=== PATIENT | male | born 1940 | race Caucasian/White ===

== ENCOUNTER 2017-01-28 19:07 | Inpatient (IN) | payer MEDICARE, MEDICAID ==
[2017-01-28 19:07] VITALS: BMI 23.2
[2017-01-28] MEDS ORDERED: Sodium Chloride 0.9% 1,000 ML IV ONE (19:39)
[2017-01-28] MEDS ORDERED: Sodium Chloride 0.9% 1,000 ML ONE (19:49)
[2017-01-28 19:54] LABS: BASO % 0.3 % (0.0-2.0); EOS # 0.2 K/uL (0.0-0.7); HEMATOCRIT 37.1 % (35.0-51.0); LYMPH # 1.7 K/uL (1.0-4.3); LYMPH % 17.2 % (20.0-40.0); MEAN CELL VOLUME 88.9 fL (80.0-94.0); MEAN CORPUSCULAR HGB CONC 33.8 g/dL (33.0-37.0); MEAN PLATELET VOLUME 9.3 fL (7.2-11.7); MONO % 10.4 % (0.0-10.0); RED CELL DISTRIBUTION WIDTH 13.9 % (11.5-14.5); WHITE BLOOD COUNT 10.1 K/uL (4.8-10.8)
[2017-01-28 20:04] LABS: CHLORIDE 104 mmol/L (98-107); POTASSIUM 3.9 mmol/L (3.6-5.2); SODIUM 140 mmol/L (132-148)
[2017-01-28 20:06] LABS: BILIRUBIN,TOTAL 0.9 mg/dL (0.2-1.3); GFR AFRICAN-AMERICAN > 60
[2017-01-28 20:07] LABS: ALB/GLOB RATIO 1.6 (1.0-2.1); ALKALINE PHOSPHATASE 37 U/L (38-126); ALT/SGPT 35 U/L (21-72); AST/SGOT 24 U/L (17-59); BLOOD UREA NITROGEN 24 mg/dL (9-20); CARBON DIOXIDE 24 mmol/L (22-30); GLUCOSE,RANDOM 125 mg/dL (75-110)
--- NOTE | 2017-01-28 20:16 | C.PDOC ---
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 Denies fever, chills, nausea, or vomiting. Chief Complaint (Nursing): Medical Clearance History Per: Patient History/Exam Limitations: no limitations Onset/Duration Of Symptoms: Mins Current Symptoms Are (Timing): Still Present Recent travel outside of the [place]: No Past Medical History Reviewed: Historical Data, Nursing Documentation, Vital Signs Vital Signs: Last Vital Signs Temp 97.7 F 01/28/17 23:01 Pulse 78 01/28/17 23:01 Resp 14 01/28/17 23:01 BP 148/72 01/28/17 23:01 Pulse Ox 97 01/28/17 23:48 - Medical History PMH: Asthma, Emphysema, Gall Bladder Disease (GALLSTONES CHOLECYSTECTOMY), HTN, Hypothyroidism Surgical History: Cholecystectomy, Endoscopy - [facility] Procedures CORONAR ARTERIOGR-2 CATH (02/18/14) LEFT HEART CARDIAC CATH (02/18/14) LT HEART ANGIOCARDIOGRAM (02/18/14) Family History: States: Unknown Family Hx - Social History Hx Alcohol Use: No Hx Substance Use: No - Immunization History Hx Tetanus Toxoid Vaccination: No Hx Influenza Vaccination: Yes Hx Pneumococcal Vaccination: No Review Of Systems Constitutional: Negative for: Fever, Chills ENT: Positive for: Other (Unable to swallow) Gastrointestinal: Negative for: Nausea, Vomiting Physical Exam - Physical Exam Appears: Non-toxic, No Acute Distress Skin: Normal Color, Warm, Dry Head: Atraumatic, Normacephalic Oral Mucosa: Moist Chest: Symmetrical, No Tenderness Cardiovascular: Rhythm Regular, No Murmur Respiratory: Normal Breath Sounds, No Rales, No Rhonchi, No Wheezing Gastrointestinal/Abdominal: Soft, Tenderness (Epigastric), No Guarding, No Rebound Back: No CVA Tenderness Neurological/Psych: Oriented x3, Normal Speech, Normal Cognition ED Course And Treatment - Laboratory Results Result Diagrams: 01/28/17 19:51 01/28/17 19:51 ECG: Interpreted By Me ECG Rhythm: AV Paced, PVC ECG Interpretation: Abnormal Interpretation Of ECG: AV paced rhythm with PVC, hunter acute change Rate From EC O2 Sat by Pulse Oximetry: 97 (Room air ) Pulse Ox Interpretation: Normal Progress Note: CT abd/pel, EKG, and CXR ordered. Pepcid, ativan, and IV fluids administered. Office of Dr. Jeri Haines called for consult; waiting for call back. Disposition Discussed With Dr.: Rm Kowalski Jr. Doctor Will See Patient In The: Hospital Counseled Patient/Family Regarding: Diagnosis - Disposition Disposition: HOSPITALIZED Disposition Time: 21:33 Condition: STABLE - Clinical Impression Clinical Impression: Esophageal obstruction - Scribe Statement The provider has reviewed the documentation as recorded by the Scriblily Manuel All medical record entries made by the Carlitoiblily were at my direction and personally dictated by me. I have reviewed the chart and agree that the record accurately reflects my personal performance of the history, physical exam, medical decision making, and the department course for this patient. I have also personally directed, reviewed, and agree with the discharge instructions and disposition.
--- NOTE | 2017-01-28 21:16 | CT ---
EXAM: CT Chest Without Intravenous Contrast CLINICAL HISTORY: 76 years old, male; Pain; Abdominal pain; Epigastric; Other: Lower chest/back pain; Patient HX: Dysphagia TECHNIQUE: Axial computed tomography images of the chest without intravenous contrast. All CT scans at this facility use one or more dose reduction techniques, viz.: automated exposure control; ma/kV adjustment per patient size (including targeted exams where dose is matched to indication; i.e. head); or iterative reconstruction technique. Coronal and sagittal reformatted images were created and reviewed. COMPARISON: No relevant prior studies available. FINDINGS: Limitations: Lack of intravenous contrast. Lungs: Moderate centrilobular emphysematous changes. Mild peripheral atelectasis/scarring. Apical scarring. No consolidation. Few subpleural pulmonary nodules and/or scarring up to 0.7 cm. Pleural space: No pneumothorax. No significant effusion. Heart: No cardiomegaly. No significant pericardial effusion. Coronary artery calcifications. Mediastinum: Mild air/fluid distention of proximal to mid esophagus. Collapse or narrowing of distal esophagus. Intraluminal filling defect within mid esophagus. Bones/joints: Median sternotomy. Mild degenerative changes of spine. No acute fracture. Soft tissues: Unremarkable. Vasculature: [id number] atherosclerotic disease. No aneurysm. Lymph nodes: No pathologically enlarged lymph nodes. Tubes, lines and devices: LEFT pacemaker. IMPRESSION: 1. Mild distention of proximal to mid esophagus with collapse or narrowing of distal esophagus. Intraluminal lesion vs debris within mid esophagus. Recommend endoscopy. 2. Pulmonary nodules. For low-risk patients recommend follow-up chest CT at 3-6 months. If unchanged consider an additional follow-up CT at 18-24 months. For high-risk patients (smoking history or other known risk factors) initial follow-up chest CT at 3-6 months and if unchanged, 18-24 months. 3. Incidental/non-acute findings are described above. EXAM: CT Abdomen and Pelvis Without Intravenous Contrast CLINICAL HISTORY: 76 years old, male; Pain; Abdominal pain; Epigastric; Other: Lower chest/back pain; Patient HX: Dysphagia TECHNIQUE: Axial computed tomography images of the abdomen and pelvis without intravenous contrast. All CT scans at this facility use one or more dose reduction techniques, viz.: automated exposure control; ma/kV adjustment per patient size (including targeted exams where dose is matched to indication; i.e. head); or iterative reconstruction technique. Coronal and sagittal reformatted images were created and reviewed. COMPARISON: No relevant prior studies available. FINDINGS: Limitations: Lack of intravenous contrast. ABDOMEN: Liver: Fatty infiltration. Apparent 1.2 x 1.1 x 1.2 cm relatively hyperdense lesion within RIGHT lobe. Gallbladder and bile ducts: Cholecystectomy. No ductal dilation. Pancreas: Unremarkable. No ductal dilation. Spleen: No splenomegaly. Adrenals: No mass. Kidneys and ureters: Few too small to characterize lesions within kidneys. Few small renal calculi. No hydronephrosis. Stomach and bowel: No definite mural thickening. No obstruction. Appendix: No findings to suggest acute appendicitis. PELVIS: Bladder: Unremarkable. No stones. Reproductive: Unremarkable as visualized. ABDOMEN and PELVIS: Intraperitoneal space: No significant fluid collection. No free air. Bones/joints: Mild degenerative changes of spine. No acute fracture. Soft tissues: Unremarkable. Vasculature: [id number] atherosclerotic disease. No aneurysm. Lymph nodes: No pathologically enlarged lymph nodes. IMPRESSION: 1. Possible liver lesion. Recommend nonemergent MRI. 2. Nonobstructing renal calculi. 3. Incidental/non-acute findings are described above.
--- NOTE | 2017-01-28 22:17 | CP.PCM.HP ---
History of Present Illness - History of Present Illness History of Present Illness: CC: I was eating a piece of meat and it feels like it is stuck in my esophagus. HPI: Patient is a 76 year old male with PMHx of AICD placed in 09/2016, DM, HTN, HLD, hypothyroid, asthma, emphysema who presents today because he was eating dinner and felt like a piece of meat got stuck in his throat. Patient says none of the food he was eating was hard and there were no bones in the food. Patient was unable to swallow and tried taking sips of water which he regurgitated (10x) . Patient says he has pain in his epigastrium that he rates as a 7/10. He also has some mid back pain. Patient denies chest pain, shortness of breath, nausea, constipation, or diarrhea. PMD: Dr. Kowalski PMHx: AICD placed in 09/2016, DM, HTN, HLD, hypothyroid, asthma, emphysema Psurg: Cholecystectomy, Cath/angio in 2013, AICD in 2016, neck operation for an infection? in 2007 Famhx: Brother: [place] at 56 Father: [place] at 65 Social: quit smoking cigarettes 15 years ago, drinks about once every 1-2months , denies drugs Present on Admission - Present on Admission Any Indicators Present on Admission: No History of DVT/PE: No History of Uncontrolled Diabetes: No Urinary Catheter: No Decubitus Ulcer Present: No Review of Systems - Constitutional Constitutional: absent: Chills, Fever - EENT Eyes: absent: Blurred Vision Ears: absent: Decreased Hearing Nose/Mouth/Throat: Dysphagia, Odynophagia - Cardiovascular Cardiovascular: absent: Chest Pain, Claudication, Dyspnea on Exertion, Edema - Respiratory Respiratory: absent: Dyspnea, Wheezing, Stridor - Gastrointestinal Gastrointestinal: Dysphagia, Odynophagia. absent: Constipation, Diarrhea - Musculoskeletal Musculoskeletal: absent: Joint Swelling, Muscle Weakness, Stiffness - Neurological Neurological: absent: Dizziness - Psychiatric Psychiatric: absent: Confusion - Endocrine Endocrine: absent: Change in Body Appearance, Fatigue Past Patient History - Infectious Disease Hx of Infectious Diseases: None - Past Medical History & Family History Past Medical History?: Yes - Past Social History Smoking Status: Former Smoker - CARDIAC Hx Hypertension: Yes - PULMONARY Hx Asthma: Yes Hx Emphysema: Yes - NEUROLOGICAL Hx Neurological Disorder: No - HEENT Hx HEENT Problems: Yes Hx Cataracts: Yes (BILAT IOL) - RENAL Other/Comment: RENAL INSUFFICIENCY - ENDOCRINE/METABOLIC Hx Hypothyroidism: Yes - HEMATOLOGICAL/ONCOLOGICAL Hx Blood Disorders: No - INTEGUMENTARY Hx Dermatological Problems: No - MUSCULOSKELETAL/RHEUMATOLOGICAL Hx Musculoskeletal Disorders: Yes Hx Back Pain: Yes - GASTROINTESTINAL Hx Gall Bladder Disease: Yes (GALLSTONES CHOLECYSTECTOMY) - GENITOURINARY/GYNECOLOGICAL Hx Genitourinary Disorders: No - PSYCHIATRIC Hx Substance Use: No - SURGICAL HISTORY Hx Cholecystectomy: Yes - ANESTHESIA Hx Anesthesia: Yes Hx Anesthesia Reactions: No Hx Malignant Hyperthermia: No Meds Allergies/Adverse Reactions: Allergies Allergy/AdvReac Type Severity Reaction Status Date / Time No Known Allergies Allergy Verified 01/28/17 19:17 Physical Exam - Constitutional Appears: Non-toxic, No Acute Distress - Head Exam Head Exam: ATRAUMATIC, NORMAL INSPECTION, NORMOCEPHALIC - Eye Exam Eye Exam: EOMI, Normal appearance, PERRL - ENT Exam ENT Exam: Mucous Membranes Moist, Normal Exam - Neck Exam Neck exam: Positive for: Full Rom, Normal Inspection - Respiratory Exam Respiratory Exam: Clear to Auscultation Bilateral, NORMAL BREATHING PATTERN. absent: Rales, Rhonchi, Wheezes, Respiratory Distress - Cardiovascular Exam Cardiovascular Exam: REGULAR RHYTHM, RRR. absent: Gallop, Rubs, Systolic Murmur - GI/Abdominal Exam GI & Abdominal Exam: Normal Bowel Sounds, Soft, Tenderness Additional comments: epigastric tenderness - Extremities Exam Extremities exam: Positive for: normal inspection. Negative for: calf tenderness, pedal edema - Back Exam Back exam: NORMAL INSPECTION - Neurological Exam Neurological exam: Alert, Oriented x3 - Psychiatric Exam Psychiatric exam: Normal Affect, Normal Mood - Skin Skin Exam: Intact, Normal Color, Warm Results - Vital Signs Recent Vital Signs: Last Vital Signs Temp 97.5 F L 01/28/17 19:13 Pulse 74 01/28/17 21:11 Resp 18 01/28/17 21:11 BP 130/61 01/28/17 21:11 Pulse Ox 97 01/28/17 21:37 - Labs Result Diagrams: 01/28/17 19:51 01/28/17 19:51 Assessment & Plan - Assessment and Plan (Free Text) Assessment: 1. Esophageal Obstruction CT Chest, Abd, Pelvis w/out Contrast: 1. Mild distention of proximal to mid esophagus with collapse or narrowing of distal esophagus. Intraluminal lesion vs debris within mid esophagus. Recommend endoscopy. 2. Pulmonary nodules. 3. Possible liver lesion. recommend nonemergent MRI 4. Nonobstructing renal calculi GI consulted, Dr. Haines, help appreciated Brilinta and Aspirin (home medications) held for possible endoscopy NPO for possible endoscopy 2. HTN Metoprolol 20 mg BID HCTZ 25mg po daily Losartan 50 mg po daily 3. HLD Fenofibrate 48mg PO daily, renally dosed Crestor 40 mg daily 4. Diabetes Glipizide 5mg po daily 5. Hypothyroidism Synthroid 25mcg po daily 6. Asthma Spiriva 18mcg INH daily 7. Prophylactic measures SCDs Protonix 40 mg daily
[2017-01-29] MEDS ORDERED: Etomidate 20 mg/10ml Inj IV ONE (00:29)
[2017-01-29] MEDS ORDERED: Propofol 10 mg/ml Inj (20 ML) ONE (00:34)
[2017-01-29] MEDS ORDERED: Lactated Ringer's 1,000 ML IV ONE (00:34)
--- NOTE | 2017-01-29 01:49 | CP.PCM.CON ---
<Zeynep Rodgers - Last Filed: 01/29/17 02:30> History of Present Illness - History of Present Illness History of Present Illness: GI Fellow PGY4 Consult Note This is a 76yM with a pmhx of CAD s/p CABG 2005 and AICD placed in 09/2016, DM, HTN, HLD, hypothyroid, asthma, emphysema. Pt pw co of acute dysphgia and sensation of feeling like food got stuck in his throat. Pt reports he was eating steak at 6:30pm when he experienced acute check pain radiating to his back. Patient was unable to swallow and was unable to drink water with continuous spiting of saliva. Pt reports mid-epigastric pain and back pain . Pt reports prior EGD a few years ago that was negative and a colonoscopy with no polyps. No prior hx of dysphagia or food impaction. At the time of evaluation pt was complaining of pain and continued to spit up saliva. A trial of liquids was attempted at bedside and pt was unable to tolerate with severe pain and emesis of water. ROS: A 12pt ROS was obtained and negative except as above. PmHx: AICD placed in 09/2016, DM, HTN, HLD, hypothyroid, asthma, emphysema PsHx: Cholecystectomy, Cath/angio in 2013, AICD in 2016, neck operation for an infection in 2007 FHx: Brother: [place] at 56 Father: [place] at 65 SHx: quit smoking cigarettes 15 years ago, drinks about once every 1-2months, denies drugs Past Patient History - Infectious Disease Hx of Infectious Diseases: None - Past Medical History & Family History Past Medical History?: Yes - Past Social History Smoking Status: Former Smoker - CARDIAC Hx Hypertension: Yes - PULMONARY Hx Asthma: Yes Hx Emphysema: Yes - NEUROLOGICAL Hx Neurological Disorder: No - HEENT Hx HEENT Problems: Yes Hx Cataracts: Yes (BILAT IOL) - RENAL Other/Comment: RENAL INSUFFICIENCY - ENDOCRINE/METABOLIC Hx Hypothyroidism: Yes - HEMATOLOGICAL/ONCOLOGICAL Hx Blood Disorders: No - INTEGUMENTARY Hx Dermatological Problems: No - MUSCULOSKELETAL/RHEUMATOLOGICAL Hx Musculoskeletal Disorders: Yes Hx Back Pain: Yes - GASTROINTESTINAL Hx Gall Bladder Disease: Yes (GALLSTONES CHOLECYSTECTOMY) - GENITOURINARY/GYNECOLOGICAL Hx Genitourinary Disorders: No - PSYCHIATRIC Hx Substance Use: No - SURGICAL HISTORY Hx Cholecystectomy: Yes - ANESTHESIA Hx Anesthesia: Yes Hx Anesthesia Reactions: No Hx Malignant Hyperthermia: No Meds Allergies/Adverse Reactions: Allergies Allergy/AdvReac Type Severity Reaction Status Date / Time No Known Allergies Allergy Verified 01/28/17 19:17 - Medications Medications: Current Medications Fenofibrate (Tricor) 48 mg PO DAILY [facility] Glipizide (Glucotrol Xl) 5 mg PO DAILY [facility] Hydrochlorothiazide (Hydrodiuril) 25 mg PO DAILY [facility] Sodium Chloride (Sodium Chloride 0.9%) 1,000 mls @ 100 mls/hr IV .Q10H ONE Stop: 01/29/17 05:38 Last Admin: 01/28/17 19:54 Dose: 100 mls/hr Levothyroxine Sodium (Synthroid) 25 mcg PO DAILY@0630 [facility] Losartan Potassium (Cozaar) 50 mg PO DAILY [facility] Metoprolol Tartrate (Lopressor) 25 mg PO BID [facility] Pantoprazole Sodium (Protonix Ec Tab) 40 mg PO DAILY [facility] Rosuvastatin Calcium (Crestor) 40 mg PO HS [facility] Tiotropium [place] (Spiriva) 18 mcg INH RQ24 [facility] Physical Exam - Constitutional Appears: Non-toxic - Head Exam Head Exam: ATRAUMATIC, NORMAL INSPECTION, NORMOCEPHALIC - Eye Exam Eye Exam: EOMI, Normal appearance, PERRL Pupil Exam: PERRL - ENT Exam ENT Exam: Mucous Membranes Moist - Neck Exam Neck exam: Positive for: Normal Inspection - Respiratory Exam Respiratory Exam: Clear to Auscultation Bilateral, NORMAL BREATHING PATTERN - Cardiovascular Exam Cardiovascular Exam: RRR, +S1, +S2 - GI/Abdominal Exam GI & Abdominal Exam: Normal Bowel Sounds, Soft. absent: Distended, Firm, Guarding, Organomegaly, Rebound, Tenderness - Rectal Exam Rectal Exam: Deferred - Extremities Exam Extremities exam: Positive for: full ROM, normal inspection - Back Exam Back exam: NORMAL INSPECTION, tenderness - Neurological Exam Neurological exam: Alert, Oriented x3 - Psychiatric Exam Psychiatric exam: Normal Affect, Normal Mood - Skin Skin Exam: Dry, Intact, Normal Color, Warm - Additional Findings Additional findings: Pt appears uncomfortable and continues to spit up saliva Results - Vital Signs Recent Vital Signs: Last Vital Signs Temp 97.1 F L 01/29/17 01:10 Pulse 64 01/29/17 01:25 Resp 17 01/29/17 01:25 BP 132/61 01/29/17 01:25 Pulse Ox 98 01/29/17 01:25 - Labs Result Diagrams: 01/28/17 19:51 01/28/17 19:51 Assessment & Plan - Assessment and Plan (Free Text) Assessment: This is a 76yM pw co food being stuck in throat and having epigastric and back pain. 1. Food Impaction 2. Acute Dysphagia 3. 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 -IV Reglan one time dose prior to EGD, per pharmacy IV Erythromycin not available -Discussed case with attending Dr Finnegan and will plan EGD within the next 1hour -Since pt is on dual anti-platelet therapy no plan for biopsies-okay to resume medications -Results to follow after EGD <Ivan Finnegan MD - Last Filed: 01/29/17 10:04> Meds - Medications Medications: Current Medications Enoxaparin Sodium (Lovenox) 40 mg SC DAILY [facility] Fenofibrate (Tricor) 48 mg PO DAILY [facility] Glipizide (Glucotrol Xl) 5 mg PO DAILY [facility] Hydrochlorothiazide (Hydrodiuril) 25 mg PO DAILY [facility] Levothyroxine Sodium (Synthroid) 25 mcg PO DAILY@0630 [facility] Last Admin: 01/29/17 07:30 Dose: 25 mcg Losartan Potassium (Cozaar) 50 mg PO DAILY [facility] Metoprolol Tartrate (Lopressor) 25 mg PO BID [facility] Pantoprazole Sodium (Protonix Ec Tab) 40 mg PO DAILY [facility] Pneumococcal Polyvalent Vaccine (Pneumovax 23 Vaccine) 0.5 ml IM .ONCE ONE Stop: 01/30/17 10:01 Rosuvastatin Calcium (Crestor) 40 mg PO HS [facility] Tiotropium [place] (Spiriva) 18 mcg INH RQ24 [facility] Results - Vital Signs Recent Vital Signs: Last Vital Signs Temp 99.6 F 01/29/17 08:22 Pulse 84 01/29/17 08:22 Resp 20 01/29/17 08:22 BP 109/61 01/29/17 08:22 Pulse Ox 94 L 01/29/17 08:22 - Labs Result Diagrams: 01/28/17 19:51 01/28/17 19:51 Attending/Attestation - Attestation I have personally seen and examined this patient.: Yes I have fully participated in the care of the patient.: Yes I have reviewed all pertinent clinical information: Yes Notes (Text): 01/29/17 09:37 This is a 76 year old M admitted with dysphagia after he was eating steak and had sensation of food being stuck in throat and having epigastric pain. He also has histor of CAD s/p CABG and AICD on brilinta and ASA. s/p urgent EGD with food bolus in proximal esophagus that was removed with carter net. No biopsies were taken to rule out eosinophilic esophagitis as he was on dual anti platelet. Will need repeat EGD with biopsies once off TABBY. Continue supportive care. Start diet as tolerated. can be discharged to home with outpatient follow up.
[2017-01-29] MEDS ORDERED: Levothyroxine 25 MCG TAB PO SCH (06:30)
[2017-01-29] MEDS ORDERED: Tiotropium 18 mcg Cap For Inhalation INH SCH (08:00)
[2017-01-29 08:23] VITALS: RESP 20
[2017-01-29] MEDS ORDERED: Pantoprazole 40 mg EC Tab PO SCH (10:00)
[2017-01-29] MEDS ORDERED: GlipiZIDE 5 mg SR Tab PO SCH (10:00)
[2017-01-29] MEDS ORDERED: Enoxaparin 40 mg Syringe SC SCH (10:00)
--- NOTE | 2017-01-29 11:24 | RAD ---
HISTORY: abd pain COMPARISON: No prior. TECHNIQUE: Chest PA and lateral FINDINGS: LUNGS: No active pulmonary disease. PLEURA: No significant pleural effusion identified. No pneumothorax apparent. CARDIOVASCULAR: Normal. A bipolar permanent cardiac pacer is identified placed by apparent left subclavian approach with the generator at the left pectoralis region and 2 leads extending into the region of the heart. Sternotomy wires are also noted. OSSEOUS STRUCTURES: No significant abnormalities. VISUALIZED UPPER ABDOMEN: Normal. OTHER FINDINGS: None. IMPRESSION: No acute cardiopulmonary is appreciated at this time.
--- NOTE | 2017-01-29 15:14 | CP.PCM.DIS ---
Provider - Provider Date of Admission: 01/28/17 21:34 Attending physician: Rm Kowalski Jr, MD Time Spent in preparation of Discharge (in minutes): 40 Hospital Course - Lab Results Lab Results: Most Recent Lab Values WBC 10.1 K/uL (4.8-10.8) 01/28/17 19:51 RBC 4.17 Mil/uL (4.40-5.90) L 01/28/17 19:51 Hgb 12.5 g/dL (12.0-18.0) 01/28/17 19:51 Hct 37.1 % (35.0-51.0) 01/28/17 19:51 MCV 88.9 fL (80.0-94.0) 01/28/17 19:51 MCH 30.0 pg (27.0-31.0) 01/28/17 19:51 MCHC 33.8 g/dL (33.0-37.0) 01/28/17 19:51 RDW 13.9 % (11.5-14.5) 01/28/17 19:51 Plt Count 203 K/uL (130-400) 01/28/17 19:51 MPV 9.3 fL (7.2-11.7) 01/28/17 19:51 Neut % (Auto) 70.1 % (50.0-75.0) 01/28/17 19:51 Lymph % (Auto) 17.2 % (20.0-40.0) L 01/28/17 19:51 [place] % (Auto) 10.4 % (0.0-10.0) H 01/28/17 19:51 Eos % (Auto) 2.0 % (0.0-4.0) 01/28/17 19:51 Baso % (Auto) 0.3 % (0.0-2.0) 01/28/17 19:51 Neut # 7.1 K/uL (1.8-7.0) H 01/28/17 19:51 Lymph # 1.7 K/uL (1.0-4.3) 01/28/17 19:51 [place] # 1.0 K/uL (0.0-0.8) H 01/28/17 19:51 Eos # 0.2 K/uL (0.0-0.7) 01/28/17 19:51 Baso # 0.0 K/uL (0.0-0.2) 01/28/17 19:51 Sodium 140 mmol/L (132-148) 01/28/17 19:51 Potassium 3.9 mmol/L (3.6-5.2) 01/28/17 19:51 Chloride 104 mmol/L (98-107) 01/28/17 19:51 Carbon Dioxide 24 mmol/L (22-30) 01/28/17 19:51 Anion Gap 16 (10-20) 01/28/17 19:51 BUN 24 mg/dL (9-20) H 01/28/17 19:51 Creatinine 1.3 MG/DL (0.8-1.5) 01/28/17 19:51 Est GFR ( Amer) > 60 01/28/17 19:51 Est GFR (Non-Af Amer) 54 01/28/17 19:51 POC Glucose (mg/dL) 244 mg/dL (65-110) H 01/29/17 11:19 Random Glucose 125 mg/dL (75-110) H 01/28/17 19:51 Calcium 9.0 mg/dl (8.6-10.4) 01/28/17 19:51 Total Bilirubin 0.9 mg/dL (0.2-1.3) 01/28/17 19:51 AST 24 U/L (17-59) 01/28/17 19:51 ALT 35 U/L (21-72) 01/28/17 19:51 Alkaline Phosphatase 37 U/L (38-126) L 01/28/17 19:51 Total Protein 7.0 g/dL (6.3-8.3) 01/28/17 19:51 Albumin 4.3 g/dL (3.5-5.0) 01/28/17 19:51 Globulin 2.7 gm/dL (2.2-3.9) 01/28/17 19:51 Albumin/Globulin Ratio 1.6 (1.0-2.1) 01/28/17 19:51 Lipase 225 U/L (23-300) 01/28/17 19:51 - Hospital Course Hospital Course: CC: I was eating a piece of meat and it feels like it is stuck in my esophagus. HPI: Patient is a 76 year old male with PMHx of AICD placed in 09/2016, DM, HTN, HLD, hypothyroid, asthma, emphysema who presents today because he was eating dinner and felt like a piece of meat got stuck in his throat. Patient says none of the food he was eating was hard and there were no bones in the food. Patient was unable to swallow and tried taking sips of water which he regurgitated (10x) . Patient says he has pain in his epigastrium that he rates as a 7/10. He also has some mid back pain. Patient denies chest pain, shortness of breath, nausea, constipation, or diarrhea. PMD: Dr. Kowalski PMHx: AICD placed in 09/2016, DM, HTN, HLD, hypothyroid, asthma, emphysema Psurg: Cholecystectomy, Cath/angio in 2013, AICD in 2016, neck operation for an infection? in 2007 Famhx: Brother: [place] at 56 Father: [place] at 65 Social: quit smoking cigarettes 15 years ago, drinks about once every 1-2months , denies drugs Hospital Course: 01/29: CT of the Chest/abdomen/pelvis was done which showed incidental/non-acute findings. GI was consulted, Dr. Finnegan and Emergent endoscopic evaluation for food impaction was performed. Food bolus was removed. Patient stable for discharge per Dr. Kowalski. Patient to follow up with primary care doctor in one week. Patient can restart all home medications. Patient to return to the emergency room if symptoms worsen. This is a brief summary of events. For a complete course, refer to the medical record. Discharge Exam - Head Exam Head Exam: ATRAUMATIC, NORMAL INSPECTION, NORMOCEPHALIC - Eye Exam Eye Exam: EOMI, Normal appearance, PERRL Pupil Exam: NORMAL ACCOMODATION - ENT Exam ENT Exam: Mucous Membranes Moist, Normal Oropharynx - Respiratory Exam Respiratory Exam: Clear to PA & Lateral, NORMAL BREATHING PATTERN - Cardiovascular Exam Cardiovascular Exam: REGULAR RHYTHM, RRR, +S1, +S2 - GI/Abdominal Exam GI & Abdominal Exam: Normal Bowel Sounds, Soft. absent: Tenderness - Extremities Exam Extremities exam: normal inspection - Neurological Exam Neurological exam: Alert, Oriented x3 - Psychiatric Exam Psychiatric exam: Normal Affect, Normal Mood - Skin Skin Exam: Normal Color, Warm Discharge Plan - Follow Up Plan Condition: STABLE Disposition: HOME/ ROUTINE Instructions: Esophageal Spasm (GEN) Additional Instructions: Patient is stable for discharge as per Dr. Kowalski. Patient to follow up with primary care doctor in one week Patient can restart all home medications. Patient to return to the emergency room if symptoms worsen. Referrals: Rm Kowalski Jr., MD [Medical Doctor] -
[2017-01-29 15:56] VITALS: BP 121/61; PULSE 53; TEMP 98.3; O2SAT 95
[2017-01-30] MEDS ORDERED: Pneumococcal 23-Valent Vaccine IM ONE (10:00)
--- NOTE | 2017-02-11 20:28 | CARD ---
APPROVED REPORT EKG Measurement Heart [id number] ID [id number] <Conclusion> ddd pacing with frequent premature ventricular complexes Left axis deviation Abnormal ECG
== END 2017-01-29 16:15 | disposition home or self-care (01) | DRG 392 ==
LOC: C.ER 19:07 → C.3T 21:34
PROVIDERS: ADMIT Internal Medicine; ATTEND Internal Medicine
PROC: 0DC28ZZ Extirpation of Matter from Middle Esophagus, Via Natural or Artificial Opening Endoscopic (ICD-10-PCS; 2017-01-29)
PROC: 0DB88ZX Excision of Small Intestine, Via Natural or Artificial Opening Endoscopic, Diagnostic (ICD-10-PCS; principal; 2017-01-29 00:40)
DX: K22.4 Dyskinesia of esophagus (principal); J43.9 Emphysema, unspecified; I10 Essential (primary) hypertension; K44.0 Diaphragmatic hernia with obstruction, without gangrene; K22.2 Esophageal obstruction; E03.9 Hypothyroidism, unspecified; J45.909 Unspecified asthma, uncomplicated; Z90.49 Acquired absence of other specified parts of digestive tract; E78.5 Hyperlipidemia, unspecified; Z95.810 Presence of automatic (implantable) cardiac defibrillator; Z87.891 Personal history of nicotine dependence; R91.8 Other nonspecific abnormal finding of lung field; N20.0 Calculus of kidney; I25.10 Atherosclerotic heart disease of native coronary artery without angina pectoris; Z95.1 Presence of aortocoronary bypass graft